=== PATIENT | male | born 1975 | race Caucasian/White ===

== ENCOUNTER 2017-12-09 14:54 | Emergency (ER) | payer MEDICAID ==
[~2017-12-09] VITALS: Ht 167.6 cm; Wt 90.9 kg
[2017-12-09 15:11] VITALS: Ht 167.6 cm; Wt 90.9 kg
[2017-12-09] MEDS ORDERED: TRAZODONE HCL150 MG PO (15:12)
[2017-12-09] MEDS ORDERED: CELEXA20 MG PO (15:12)
[2017-12-09 16:02] VITALS: BP 135/87
== END 2017-12-09 16:03 | disposition home or self-care (01) ==
LOC: D.ER 14:54
DX: F10.239 Alcohol dependence with withdrawal, unspecified (principal)